=== PATIENT | male | born 1980 | race Caucasian/White ===

== ENCOUNTER 2022-12-23 13:55 | Emergency (ER) | payer MEDICAID ==
[~2022-12-23] VITALS: Ht 162.6 cm; Wt 83.0 kg
[2022-12-23 14:27] VITALS: BP 172/91; PULSE 74; RESP 18; TEMP 98.8; O2SAT 100
[2022-12-23] MEDS ORDERED: IBUPROFEN 600 MG TAB PO ONE (14:45)
[2022-12-23] MEDS ORDERED: NAPR-1704 PO (15:43)
== END 2022-12-23 15:50 | disposition home or self-care (01) ==
LOC: MED 13:55
DX: S40.011A Contusion of right shoulder, initial encounter (principal); W18.30XA Fall on same level, unspecified, initial encounter; Y93.89 Activity, other specified; Y92.89 Other specified places as the place of occurrence of the external cause; Y99.8 Other external cause status
CPT/HCPCS: 73030; 99283